=== PATIENT | female | born 1970 | race African-American/Black ===

== ENCOUNTER 2017-05-18 21:45 | Emergency (ER) | payer MEDICAID ==
[~2017-05-18] VITALS: Ht 170.2 cm; Wt 52.3 kg
[~2017-05-18 21:45] MED LIST: NOCURR
[2017-05-18 23:59] VITALS: BP 120/67
== END 2017-05-19 | disposition home or self-care (01) ==
LOC: EMS 21:46
DX: M54.5 Low back pain (principal); M54.2 Cervicalgia; M62.830 Muscle spasm of back; Z88.2 Allergy status to sulfonamides; V49.9XXA Car occupant (driver) (passenger) injured in unspecified traffic accident, initial encounter; Y93.89 Activity, other specified; Y92.481 Parking lot as the place of occurrence of the external cause; Y99.8 Other external cause status
CPT/HCPCS: 99283

== ENCOUNTER 2019-09-06 22:31 | Emergency (ER) | payer MEDICAID ==
[~2019-09-06] VITALS: Ht 170.2 cm; Wt 22.7 kg
[2019-09-06] MEDS ORDERED: DIAZEPAM 5 MG TABLET PO ONE (23:00)
[2019-09-06] MEDS ORDERED: KETOROLAC TROMETHAMINE 30 MG/ML VIAL IM ONE (23:00)
[2019-09-06] MEDS ORDERED: LIDOCAINE 5% TRANSDERMAL PATCH TD ONE (23:00)
[2019-09-06] MEDS ORDERED: ACETAMINOPHEN 500 MG TABLET PO ONE (23:00)
[2019-09-07 00:37] VITALS: BP 103/61
== END 2019-09-07 01:00 | disposition home or self-care (01) ==
LOC: EMS 22:37
DX: S39.012A Strain of muscle, fascia and tendon of lower back, initial encounter (principal); Z88.1 Allergy status to other antibiotic agents; V49.9XXA Car occupant (driver) (passenger) injured in unspecified traffic accident, initial encounter; Y93.89 Activity, other specified; Y92.89 Other specified places as the place of occurrence of the external cause; Y99.8 Other external cause status
CPT/HCPCS: 96372; 99284; J1885

== ENCOUNTER 2022-08-11 18:05 | Emergency (ER) | payer MEDICAID ==
[~2022-08-11] VITALS: Ht 170.2 cm; Wt 45.5 kg
[2022-08-11] MEDS ORDERED: IBUPROFEN 600 MG TABLET PO ONE (19:00)
[2022-08-11 20:12] LABS: APPEARANCE,URINE CLEAR (CLEAR); BILIRUBIN,URINE NEGATIVE (NEGATIVE); GLUCOSE, URINE (UA) NEGATIVE (NEGATIVE); KETONES,URINE NEGATIVE (NEGATIVE); LEUKOCYTE ESTERASE ,URINE NEGATIVE (NEGATIVE); NITRATE,URINE NEGATIVE (NEGATIVE); OCCULT BLOOD,URINE LARGE (NEGATIVE); PROTEIN,URINE TRACE mg/dL (NEGATIVE); SPECIFIC GRAVITIY, URINE 1.006 (1.003-1.030); UROBILINOGEN,URINE <=1.0 mg/dL (<=1.0)
[2022-08-11 20:18] LABS: AMPHET/METH SCREEN,URINE NEGATIVE (NEGATIVE); BARBITURATE SCREEN, URINE NEGATIVE (NEGATIVE); BENZODIAZEPINES SCREEN,URINE NEGATIVE (NEGATIVE); CANNABINOID SCREEN,URINE POSITIVE (NEGATIVE); COCAINE SCREEN,URINE NEGATIVE (NEGATIVE); METHADONE SCREEN, URINE NEGATIVE (NEGATIVE); OPIATE SCREEN,URINE NEGATIVE (NEGATIVE); PHENCYCLIDINE SCREEN,URINE NEGATIVE (NEGATIVE)
[2022-08-11 20:41] LABS: RBC,URINE 0-2 /HPF (0-2)
[2022-08-11 20:42] LABS: BACTERIA,URINE None Seen /HPF (None Seen); WBC,URINE 0-2 /HPF (0-5)
[2022-08-11 21:23] VITALS: BP 180/99; PULSE 88; RESP 16; TEMP 98.6
== END 2022-08-11 22:09 | disposition left against medical advice (07) ==
LOC: EMS 18:13
DX: M25.571 Pain in right ankle and joints of right foot (principal); R45.1 Restlessness and agitation; Z98.890 Other specified postprocedural states
CPT/HCPCS: 80307; 81001; 99285